=== PATIENT | female | born 1995 | race Caucasian/White ===

== ENCOUNTER 2024-03-30 17:42 | Emergency (ER) | payer SELFPAY ==
[2024-03-30 17:45] VITALS: BP 111/77; PULSE 121; RESP 19; TEMP 36.8; O2SAT 100; BMI 22.4
--- NOTE | 2024-03-30 18:23 | EDS_ITS ---
HPI <FELIPE Henriquez - Last Filed: 03/30/24 20:46> History of Present Illness Chief Complaint: Nausea/Vomiting Narrative Narrative: Patient is a 28-year-old female with history of eczema who presents to the emergency department for 2 hours of nausea, vomiting, dizziness. Patient states that she thought that she was going to vomit, she then became dizzy which she described as lightheadedness, she then had multiple episode of vomitus. Patient recently flew up here from [place] for vacation to see her friends. Patient states that she was around multiple people that were diagnosed with influenza. Patient states that she also has some upper and lower extremity numbness and tingling. Patient states that she is having more abdominal cramping. Denies any blood in her stool or vomit. Patient's last menstrual cycle was greater than 1 month ago. PFSH <FELIPE Henriquez - Last Filed: 03/30/24 20:46> FOR[facility], [facility] Home Medications ?Medication ?Instructions ?Recorded ?Last Taken ?Type dicyclomine 20 mg tablet 20 mg PO TID #10 tabs Unknown Rx ondansetron 4 mg disintegrating 4 mg PO Q8H PRN PRN Na usea #10 tabs 03/30/24 Un known Rx tablet Allergy/AdvReac Type Severity Reaction Status Date / Time tramadol Allergy Mild Hives Verified 03/30/24 22:33 Social History Smoking Status: Never smoker ROS <FELIPE Henriquez - Last Filed: 03/30/24 20:46> ROS ED ROS Narrative Constitutional: Negative for fever, chills, weight loss, weakness Eyes: Negative for vision loss, vision change, double vision ENT: Negative for any sore throat, ear pain, congestion Cardiovascular: Negative for any chest pain, tightness, palpitations Respiratory: Negative for any cough, sputum production, hemoptysis, dyspnea, dyspnea on exertion, orthopnea Gastrointestinal: Negative for any diarrhea, constipation, blood in stool, blood in vomit. Positive for abdominal pain, nausea and vomiting : Negative for any urinary frequency, dysuria, retention, blood in urine Muscle skeletal: Negative for any neck pain, back pain Neurological: Negative for any headache, syncope, dizziness Skin: Negative for any rashes, itching, abrasions, lacerations Psychiatric: Negative for any depression, anxiety, stress, suicidal ideation, homicidal ideation Hematologic: Negative for any excessive bruising, easy bleeding EXAM <FELIPE Henriquez - Last Filed: 03/30/24 20:46> Physical Exam Narrative Exam Narrative: Vital signs reviewed. Patient appears to be in no obvious respiratory distress, vital signs are stable. Patient does look slightly anxious. HEET: Head normocephalic atraumatic, TMs clear bilaterally. Posterior pharynx is clear, dry mucous membranes. Nares clear bilaterally. Neck: Supple with no lymphadenopathy or tenderness. No signs of meningismus. Cardiac: Regular rate and rhythm no murmurs gallops or rubs, equal peripheral pulses bilaterally. Respiratory: Lungs clear to auscultation bilaterally. No chest tenderness. Abdomen: Soft, nontender, nondistended. No abdominal bruit or pulsatile masses. No hepatosplenomegaly Extremities: No peripheral edema, no signs of gross trauma or deformity. Active full range of motion of all extremities. Neuro: Cranial nerves II through XII intact, no focal neurological deficits. Skin: Clean dry and intact with no rash, purpura, petechiae, vesicles or pustules. Backs/flank: No CVA tenderness, no midline spinal tenderness, no deformity. Psych: Normal mood and affect. No SI, HI or acute psychosis. Const Vital Signs: 03/30/24 17:45 03/30/24 20:08 03/30/24 21:24 Temperature 98.3 F 97.9 F Temperature Source Temporal Pulse Rate 121 H 79 82 Respiratory Rate 19 H 17 18 Blood Pressure 111/77 111/71 95/56 L Blood Pressure Mean 88 84 69 Pulse Ox 100 100 97 Oxygen Delivery Method Room Air Room Air Positive well nourished and well developed General Appearance ED: well developed <Dr. Mele Diane, DO - Last Filed: 03/30/24 22:36> Physical Exam Const Vital Signs: 03/30/24 17:45 03/30/24 20:08 03/30/24 21:24 Temperature 98.3 F 97.9 F Temperature Source Temporal Pulse Rate 121 H 79 82 Respiratory Rate 19 H 17 18 Blood Pressure 111/77 111/71 95/56 L Blood Pressure Mean 88 84 69 Pulse Ox 100 100 97 Oxygen Delivery Method Room Air Room Air MDM <FELIPE Henriquez - Last Filed: 03/30/24 20:46> MDM Lab Data Labs: Laboratory Results - last 24 hr 03/30/24 03/30/24 18:00 18:30 WBC 15.5 H RBC 4.12 L Hgb 12.4 Hct 38.4 MCV 93.2 MCH 30.1 MCHC 32.3 RDW Std Deviation 47.8 H RDW Coeff of Ryan 14.0 Plt Count 256 MPV 10.9 Immature Gran % (Auto) 0.500 Neut % (Auto) 78.4 H Lymph % (Auto) 12.2 L [place] % (Auto) 7.7 Eos % (Auto) 0.9 Baso % (Auto) 0.3 Absolute Neuts (auto) 12.2 H Absolute Lymphs (auto) 1.89 Nucleated RBC % 0 Sodium 142 Potassium 3.6 Chloride 108 H Carbon Dioxide 22.0 Anion Gap 12 BUN 11 Creatinine 0.75 Estim Creat Clear Calc 80.21 Est GFR (MDRD) Af Amer 118 Est GFR (MDRD) Non-Af 97 BUN/Creatinine Ratio 14.6 Glucose 99 Calcium 9.9 Total Bilirubin 0.30 AST 22 ALT 31 Alkaline Phosphatase 66 Total Protein 8.4 H Albumin 3.9 Globulin 4.5 H Albumin/Globulin Ratio 0.9 Lipase 29 L Serum , Qual NEGATIVE Urine Color Yellow Urine Clarity Sl Cloudy Urine pH 8.0 Ur Specific [place] 1.015 Urine Protein 100 H Urine Glucose (UA) Normal Urine Ketones 150 A* Urine Occult Blood 10 H Urine Nitrite Negative Urine Bilirubin Negative Urine Urobilinogen Normal Ur Leukocyte Esterase 100 H Urine RBC 0-5 SEEN Urine WBC 5-10 SEEN Ur Squamous Epith Cells 5-10 SEEN Amorphous Sediment 1+ PHOS Urine Bacteria 1+ Urine Mucus 0 SEEN Treatment and Re-Evaluation :: Differential diagnosis includes however is not limited to: Bowel obstruction viral gastroenteritis, influenza, COVID-19, acute cholecystitis, pancreatitis Patient is tachycardic however she is in no obvious respiratory distress. [facility] for nausea and vomiting, generalized abdominal cramping. Patient will receive a COVID-19 influenza RSV swab, as well as basic laboratory values, CBC CMP lipase, 1 L of normal saline, IV Zofran. Urinalysis, test will also be ordered. Patient CBC showed a leukocytosis with a white blood count of 15.5, this could be secondary to nausea and vomiting. Chemistries were unremarkable. Patient is non. Second liter was given. Patient was given IV Toradol. Urinalysis shows some dehydration, negative for any infection. Patient's COVID-19 influenza RSV was negative. Patient to be reevaluated. On reevaluation, the patient was feeling improved. Patient was able to pass a p.o. challenge. Patient be given a prescription for nausea medicine, Bentyl. P atient struck to the advance her diet as tolerated. Instructed return for any worsening symptoms. <Dr. Mele Diane, DO - Last Filed: 03/30/24 22:36> [facility] Narrative Medical decision making narrative: I have personally performed a face to face assessment of the patient and have reviewed the JACQUELINE Note. I performed a substantive portion of the visit including all aspects of the following. My strickland findings include: History: Patient presents with dizziness that began today. Patient describes her dizziness as lightheadedness. Patient states that she started having some paresthesias in her hands and feet. This was over a stocking glove distri bution. Patient admits to a sore throat. Patient also admits to mild headache. Patient denies any fevers or chills. Exam: Vital signs are stable except for tachycardia of 121. Patient is afebrile. Patient is in no acute distress. Oral mucosa is pink and moist. Neck is supple. Trachea is midline. There is no JVD. Heart was regular and tachycardic. Lungs are clear and equal bilaterally. There is good respiratory effort noted. Abdomen is soft. Bowel sounds are normal. There is no tenderness. Cranial nerves II through XII are intact. There are no focal motor or sensory deficits noted. Medical Decision Making: Differential diagnosis includes viral illness, pneumonia, dehydration, gastroenteritis, pancreatitis, , urinary tract infection, and electrolyte abnormality. CBC will be obtained to assess for leukocytosis and anemia. Comprehensive metabolic profile will be obtained to assess for hepatic function, renal function, and electrolyte abnormality. Lipase will be obtained to assess for pancreatitis. Urinalysis will be obtained to assess for urinary tract infection and hematuria. Serum hCG will be obtained to assess for . COVID-19, influenza, and RSV PCR will be obtained to assess for viral illness. Patient was given IV fluids and Zofran. CBC was reviewed. There is a leukocytosis of 15.5. The remainder is within normal limits. Serum hCG was reviewed and was negative. Comprehensive metabolic profile was reviewed and was within normal limits. Lipase was reviewed and was normal at 29. Urinalysis was reviewed. Urine ketones were 150. Leukocyte esterase was 100. There are 5-10 white blood cells and 5-10 epithelial cells. Patient was feeling better on reevaluation. Patient was advised of her findings. COVID-19 PCR was reviewed and was negative. Influenza PCR was reviewed and was negative for influenza A and influenza B. RSV PCR was reviewed and was negative. Patient was able to tolerate p.o. fluids. Patient was instructed to follow-up with her primary care physician in 5 to 7 days. Patient understood and was agreeable with the plan. All questions were answered. Lab Data Labs: Laboratory Results - last 24 hr 03/30/24 03/30/24 18:00 18:30 WBC 15.5 H RBC 4.12 L Hgb 12.4 Hct 38.4 MCV 93.2 MCH 30.1 MCHC 32.3 RDW Std Deviation 47.8 H RDW Coeff of Ryan 14.0 Plt Count 256 MPV 10.9 Immature Gran % (Auto) 0.500 Neut % (Auto) 78.4 H Lymph % (Auto) 12.2 L [place] % (Auto) 7.7 Eos % (Auto) 0.9 Baso % (Auto) 0.3 Absolute Neuts (auto) 12.2 H Absolute Lymphs (auto) 1.89 Nucleated RBC % 0 Sodium 142 Potassium 3.6 Chloride 108 H Carbon Dioxide 22.0 Anion Gap 12 BUN 11 Creatinine 0.75 Estim Creat Clear Calc 80.21 Est GFR (MDRD) Af Amer 118 Est GFR (MDRD) Non-Af 97 BUN/Creatinine Ratio 14.6 Glucose 99 Calcium 9.9 Total Bilirubin 0.30 AST 22 ALT 31 Alkaline Phosphatase 66 Total Protein 8.4 H Albumin 3.9 Globulin 4.5 H Albumin/Globulin Ratio 0.9 Lipase 29 L Serum , Qual NEGATIVE Urine Color Yellow Urine Clarity Sl Cloudy Urine pH 8.0 Ur Specific [place] 1.015 Urine Protein 100 H Urine Glucose (UA) Normal Urine Ketones 150 A* Urine Occult Blood 10 H Urine Nitrite Negative Urine Bilirubin Negative Urine Urobilinogen Normal Ur Leukocyte Esterase 100 H Urine RBC 0-5 SEEN Urine WBC 5-10 SEEN Ur Squamous Epith Cells 5-10 SEEN Amorphous Sediment 1+ PHOS Urine Bacteria 1+ Urine Mucus 0 SEEN Discharge Plan Triage Chief Complaint: Nausea/Vomiting ED Midlevel Provider: Domenic Higgins ED Provider: Mele Diane Dx/Rx/DC Orders Clinical Impression: Nausea & vomiting, Viral illness Instructions: ED Viral Syndrome (Adult), ED Vomiting (Adult) Prescriptions: New ondansetron 4 mg tablet,disintegrating 4 mg PO Q8H PRN PRN (Reason: Nausea) Qty: 10 0RF dicyclomine 20 mg tablet 20 mg PO TID Qty: 10 0RF Primary Care Provider: Care Physician,No Primary Referrals: Care Physician,No Primary [Primary Care Provider] - Activity Restrictions/Additional Instructions: Please advance her diet as tolerated. Use the nausea medicine as needed. Your COVID-19 influenza RSV was negative. This is more of a viral gastroenteritis. Print Language: Greek Disposition Disposition: Home, Self Care Discharge Date/Time: 03/30/24 21:24
[2024-03-30 18:34] LABS: Absolute Lymphocyte Count 1.89 X10^3/uL (0.83-4.51); Absolute Neutrophil Count 12.2 X10^3/uL (2.0-7.7); Basophil# 0.04 X10^3/uL; Basophil% 0.3 % (0-1); Eosinophil# 0.14 X10^3/uL; Eosinophils% 0.9 % (0-5); Hematocrit 38.4 % (37-47); Hemoglobin 12.4 g/dL (12.0-15.0); Lymphocyte # 1.89 X10^3/ul (0.83-4.51); Lymphocyte % 12.2 % (19-41); Mean Corp Hgb Conc 32.3 g/dL (32-36); Mean Corpuscular Hgb 30.1 pg (27.0-32.0); Mean Corpuscular Volume 93.2 fL (81-99); Mean Platelet Vol. 10.9 fl (6.2-12.0); Monocyte% 7.7 % (0-10); NRBC Flagged by Analyzer 0 % (0-5); Neutrophil # 12.17 X10^3/uL (2.7-7.7); Neutrophil % 78.4 % (47-70); Platelet Count 256 K/mm3 (150-450); RBC Distribution Width SD 47.8 fl (35.1-43.9); Red Blood Count 4.12 M/mm3 (4.2-5.4); White Blood Count 15.5 K/mm3 (4.4-11.0)
[2024-03-30] MEDS: Ondansetron 4 MG/2 ML Vial IV (18:41)
[2024-03-30] MEDS: 0.9% Normal Saline (1000mL) 1,000 ML 999 ML IV ×2 (18:41→20:15)
[2024-03-30 18:44] LABS: Mucous, Urine 0 SEEN /hpf (<or=2+)
[2024-03-30 18:46] LABS: Internal QC Validated? YES +Cl - CLEAR BKGD; Pregnancy, Serum, hCG Quali. NEGATIVE Negative
[2024-03-30 18:49] LABS: Glucose, Dipstick Normal (Normal); Leukocyte Esterase-Dipstick 100 /ul (Negative); Nitrite-Dipstick Negative (Negative); Occult Blood-Urine 10 /ul (Negative); Protein-Dipstick 100 mg/dl (Negative); Specific Gravity, Urine 1.015 (1.002-1.030); Urine Bilirubin Dipstick Negative (Negative); Urine Urobilinogen Normal (Normal)
[2024-03-30 18:51] LABS: Color, Urine Yellow (Yellow); Urine Clarity Sl Cloudy (Clear)
[2024-03-30 18:52] LABS: Ketone-Dipstick 150 mg/dl (Negative)
[2024-03-30 18:53] LABS: ALB/GLOB Ratio 0.9 RATIO (0.9-2.4); AST(SGOT) 22 U/L (15-37); Alanine Aminotransfer ALT/SGPT 31 U/L (13-56); Albumin, Serum 3.9 g/dL (3.2-5.0); Alkaline Phosphatase 66 U/L (45-117); Anion Gap 12 (5-15); BUN 11 mg/dL (7-18); BUN/Creat Ratio 14.6 RATIO (10-20); Calcium,Total 9.9 mg/dL (8.5-10.1); Chloride 108 mmol/L (98-107); Creatinine, Serum 0.75 mg/dL (0.55-1.02); EST Glomerular Filtration Rate 97 mL/min (>60); Est Glom Filt Rate - Afr Amer 118 mL/min (>60); Estimated Creatinine Clearance 80.21 ml/min; Globulin 4.5 g/dL (2.2-4.2); Glucose 99 mg/dL (74-106); Lipase 29 U/L (73-393); Potassium 3.6 mmol/L (3.5-5.1); Protein, Total 8.4 g/dL (6.4-8.2); Sodium Level 142 mmol/L (136-145)
[2024-03-30 18:57] LABS: Red Blood Cells-Urine 0-5 SEEN /hpf (0-5); Squamous Epithelial Cells - UA 5-10 SEEN /hpf (5-10); White Blood Cells 5-10 SEEN /hpf (0-5)
[2024-03-30 18:58] LABS: Amorphous Sediment 1+ PHOS; Bacteria 1+ /hpf (None Seen)
[2024-03-30 20:08] VITALS: BP 111/71; PULSE 79; RESP 17; O2SAT 100
[2024-03-30] MEDS: Ketorolac 15 MG/ML Vial IV (20:15)
[2024-03-30 21:24] VITALS: BP 95/56; PULSE 82; RESP 18; TEMP 36.6; O2SAT 97
== END 2024-03-30 21:24 | disposition home or self-care (01) ==
PROVIDERS: Nurse Practitioner; Emergency Provider Emergency Medicine; Visit Provider Emergency Medicine
DX: A08.4 Viral intestinal infection, unspecified (principal)
CPT/HCPCS: 80053; 81001; 83690; 84703; 85025; 87631; 96361; 96374; 96375; 99283; A4216; J2405

== ENCOUNTER 2024-03-30 22:31 | Emergency (ER) | payer SELFPAY ==
[2024-03-30 22:32] VITALS: BP 110/72; PULSE 90; RESP 16; TEMP 36.8; O2SAT 99; BMI 21.9
--- NOTE | 2024-03-30 22:44 | EDS_ITS ---
HPI HPI - GI History of Present Illness Chief Complaint: GI Bleed Detail of Chief Complaint: Vomiting and hematemesis Informant: patient Narrative Narrative: Patient presents to the emergency department complaint of abdominal pain and vomiting and hematemesis. Patient states that she started with nausea and vomiting around 3 or 4 PM today. Also has had several episodes of watery stool. She was seen in the emergency department and diagnosed with a viral illness. She states that she went home and had more emesis x 2 that was bloody and then had another 1 that was brown. She comes in for reevaluation. She complains of mid to right lower quadrant abdominal pain. She has had no prior surgery. She denies fever. 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 PFSH REPLACED BY [facility] Medical History no medical history Home Medications ?Medication ?Instructions ?Recorded ?Last Taken ?Type dicyclomine 20 mg tablet 20 mg PO TID #10 tabs Unknown Rx ondansetron 4 mg disintegrating 4 mg PO Q8H PRN PRN Na usea #10 tabs 03/30/24 Unknown Rx tablet Allergy/AdvReac Type Severity Reaction Status Date / Time tramadol Allergy Mild Hives Verified 03/30/24 22:33 Social History Smoking Status: Never smoker ROS ROS ED Review of Systems ROS Unobtainable: other Constitutional Constitutional ED: Reports lethargy; Denies chills, fever(s), sweats or weight loss Eyes Eyes: Denies blurry vision, change in vision or diplopia ENT ENT ED: Denies rhinorrhea or sore throat Cardiovascular Cardiovascular: Denies chest pain, orthopnea or racing heartbeat Respiratory/Chest Respiratory/Chest: Denies cough, dyspnea, dyspnea on exertion, orthopnea or sputum Gastrointestinal Gastrointestinal: Reports abdominal pain, diarrhea, nausea and vomiting Genitourinary Genitourinary ED: Denies dysuria, hematuria or urinary frequency Musculoskeletal Musculoskeletal: Denies arthralgias, back pain, myalgias or neck pain Integumentary Denies abscess, Abrasions or rash Neurologic Neurologic: Denies headache(s) or weakness Psychiatric Psychiatric: Denies anxiety, depression or suicidal thoughts Endocrine Endocrinology: Denies polydipsia, polyphagia or polyuria Hematologic/Lymphatic Hematologic/Lymphatic: Denies easy bleeding, easy bruising or lymphadenopathy Allergic/Immunologic Allergic/Immunologic ED: Denies mouth swelling, tongue swelling or urticaria EXAM Physical Exam Const Vital Signs: 03/30/24 22:32 03/31/24 00:49 Temperature 98.2 F Temperature Source Oral Pulse Rate 90 Pulse Rate [Lying] 91 Pulse Rate [Sitting (for 1 minute prior to obtaining)] 103 H Pulse Rate [Standing (for 1 minute prior to obtaining)] 102 H Respiratory Rate 16 Blood Pressure 110/72 Blood Pressure [Lying] 100/57 L Blood Pressure [Sitting (for 1 minute prior to obtaining)] 111/64 Blood Pressure [Standing (for 1 minute prior to obtaining)] 99/65 Blood Pressure Mean 84 Blood Pressure Mean [Lying] 71 Blood Pressure Mean [Sitting (for 1 minute prior to obtaining)] 79 Blood Pressure Mean [Standing (for 1 minute prior to obtaining)] 76 Pulse Ox 99 Oxygen Delivery Method Room Air Positive well nourished and well developed General Appearance ED: well developed and NAD HEENT Reports TM's clear and moist mucous membranes normocephalic and atraumatic; Negative for trauma or tenderness Tympanic Membrane ED: Yes TM's clear Eyes PERRL and EOMs intact bilaterally General Eye ED: Negative for pale conjunctiva or scleral icterus Neck no lymphadenopathy, supple and no JVD General: Negative for tenderness Chest Wall inspection of chest normal and palpation of chest normal Chest: Negative for tenderness Resp normal respiratory effort and clear to auscultation bilaterally Effort and Inspection: Negative for respiratory distress or pain with movement Auscultation: Negative for rhonchi, wheezes or diminished lung sounds Cardio regular rate, regular rhythm, S1 normal heart sound, S2 normal heart sound and no murmurs Peripheral Pulses: pulses 2+ throughout GI normal to inspection, nondistended, normoactive bowel sounds, soft to palpation, non-distended and no masses GI Narrative: Tenderness palpation over the right lower quadrant with some guarding. There is no rebound, rigidity, or purulent signs. No mass palpated. Back/Spine no CVA tenderness and no thoracic nor lumbar tenderness Extremity normal to inspection General Extremety ED: Negative for edema General Extremity: Negative for edema Neuro oriented x3, CN's II-XII intact bilaterally, no sensory deficits noted and gait normal Sensorium / Orientation: awake, alert, oriented to person, oriented to place and oriented to time Motor Exam: strength 5/5 throughout and strength abnormal Psych mental status grossly normal Skin no rashes or lesions noted and no wounds MDM MDM MDM Narrative Medical decision making narrative: Patient presents with second visit today with nausea vomiting and diarrhea as well as abdominal pain. Patient states the diarrhea is not frequent but has had several watery stools. She went home and vomited blood. In the differential would be viral illness with Angelika-Diamond tear. She does have right lower quadrant tenderness as well. In the differential also would be appendicitis or other acute intra-abdominal process. She has no history of peptic ulcer disease. IV line will be established. Will repeat blood work and will obtain a CT scan of the abdomen pelvis. Will treat with Zofran and Protonix. CBC with differential obtained showed a white count of 10.9 with hemoglobin 11.5 and platelet count of 210. Chemistries unremarkable. Patient was medicated with Zofran and given a liter normal same fluid bolus. She did CT scan of the abdomen pelvis that showed thick walled loops of ileum as well as ascending and transverse colon possibly due to inflammatory or infectious enterocolitis. Appendix was normal. CT in keeping with an consistent with a viral gastroenteritis. Patient was given Imodium. She had 1 more episode of vomiting after the Zofran and was given Reglan 5 mg IV. Clinically she looks well. Will discharge to home. Advised to push fluids. Advised to return if persistent vomiting, diarrhea, dehydration, worsening hematemesis, or condition should worsen anyway. I suspect that hematemesis was related to a Angelika-Diamond tear. She was written for nausea medicine earlier in the day. Orthostatic vital signs were negative. She did complain of some slight lightheadedness with standing but pressures did not change significantly and heart rate did not go up. Lab Data Attestation: I reviewed the patient's lab results. Labs: Laboratory Results - last 24 hr 03/30/24 22:55 WBC 10.9 RBC 3.75 L Hgb 11.5 L Hct 36.0 L MCV 96.0 MCH 30.7 MCHC 31.9 L RDW Std Deviation 49.9 H RDW Coeff of Ryan 14.1 Plt Count 210 MPV 11.0 Immature Gran % (Auto) 0.300 Neut % (Auto) 75.9 H Lymph % (Auto) 15.7 L [place] % (Auto) 7.7 Eos % (Auto) 0.2 Baso % (Auto) 0.2 Absolute Neuts (auto) 8.3 H Absolute Lymphs (auto) 1.71 Nucleated RBC % 0 Sodium 142 Potassium 3.6 Chloride 113 H Carbon Dioxide 21.0 Anion Gap 7 BUN 9 Creatinine 0.68 Estim Creat Clear Calc 88.47 Est GFR (MDRD) Af Amer 132 Est GFR (MDRD) Non-Af 109 BUN/Creatinine Ratio 13.2 Glucose 106 Calcium 8.3 L Radiography Diagnostic Testing: Clinical Impression(s) from Imaging Studies Abdomen/Pelvis CT 03/30/24 22:44 IMPRESSION: 1. Abnormally thick walled loops of ileum, as well as the ascending and transverse colon, possibly due to an inflammatory or infectious enterocolitis. 2. Small volume of free fluid in the pelvis. [facility] Dis[facility] Plan Triage Chief Complaint: GI Bleed ED Provider: Renato Weldon Dx/Rx/DC Orders Clinical Impression: Angelika-Diamond tear, Viral gastroenteritis Instructions: Angelika-Diamond Tear, ED Gastroenteritis, Viral (Adult) Prescriptions: No Action ondansetron 4 mg tablet,disintegrating 4 mg PO Q8H PRN PRN (Reason: Nausea) Qty: 10 0RF dicyclomine 20 mg tablet 20 mg PO TID Qty: 10 0RF Primary Care Provider: Care Physician,No Primary Referrals: Wilma Alexis [Emergency Nurse] - 3-5 Days Care Physician,No Primary [Primary Care Provider] - Print Language: Luxembourgish Disposition Disposition: Home, Self Care
--- NOTE | 2024-03-30 22:44 | CT_ITS ---
PROCEDURE: ABDOMEN/PELVIS W IV CONT ONLY REASON FOR EXAM: Abdominal pain TECHNIQUE: Abdomen and pelvis CT with intravenous contrast. Multiplanar reconstructions were performed. COMPARISON: None. FINDINGS: Lower chest: Unremarkable. Liver: Unremarkable. Biliary/gallbladder: Unremarkable. Pancreas: Unremarkable. Spleen: Unremarkable. Adrenal glands: Unremarkable. Kidneys: Unremarkable. Gastrointestinal/peritoneum: Multiple loops of ileum are abnormally thick walled. Wall thickening is also present at the ascending and transverse colon.There is fluid throughout the colon consistent with diarrheal illness.The appendix is unremarkable.A small volume of free fluid is present in the pelvis. There is no free air. Vascular: Unremarkable. Lymph nodes: No enlarged lymph nodes by CT size criteria. Pelvic organs: Bilateral ovarian cysts are present measuring 3.2 and 3.1 cm respectively, which are likely physiologic. A few prominent cysts are noted at the cervix measuring up to 1.7 cm, likely a nabothian cysts. Bladder: Unremarkable. Bones: Unremarkable. Soft tissues: Unremarkable. CT/Abdomen/Pelvis W IV Cont ONLY IMPRESSION: 1. Abnormally thick walled loops of ileum, as well as the ascending and transve rse colon, possibly due to an inflammatory or infectious enterocolitis. 2. Small volume of free fluid in the pelvis. Reading Location: [facility]
[2024-03-30] MEDS: Pantoprazole Sodium 40 MG in 0.9% Normal Saline (100mL MB+) 100 ML 330 MG IV (23:04)
[2024-03-30] MEDS: Ondansetron 4 MG/2 ML Vial IV (23:04)
[2024-03-30] MEDS: 0.9% Normal Saline (1000mL) 1,000 ML 999 ML IV (23:04)
[2024-03-30 23:07] LABS: Absolute Lymphocyte Count 1.71 X10^3/uL (0.83-4.51); Absolute Neutrophil Count 8.3 X10^3/uL (2.0-7.7); Basophil# 0.02 X10^3/uL; Basophil% 0.2 % (0-1); Eosinophil# 0.02 X10^3/uL; Eosinophils% 0.2 % (0-5); Hemoglobin 11.5 g/dL (12.0-15.0); Lymphocyte # 1.71 X10^3/ul (0.83-4.51); Lymphocyte % 15.7 % (19-41); Mean Corp Hgb Conc 31.9 g/dL (32-36); Mean Corpuscular Hgb 30.7 pg (27.0-32.0); Monocyte# 0.84 X10^3/uL; Monocyte% 7.7 % (0-10); NRBC Flagged by Analyzer 0 % (0-5); Neutrophil % 75.9 % (47-70); Platelet Count 210 K/mm3 (150-450); RBC Distribution Width CV 14.1 % (11.6-14.6); RBC Distribution Width SD 49.9 fl (35.1-43.9); Red Blood Count 3.75 M/mm3 (4.2-5.4); White Blood Count 10.9 K/mm3 (4.4-11.0)
[2024-03-30 23:37] LABS: Anion Gap 7 (5-15); BUN 9 mg/dL (7-18); BUN/Creat Ratio 13.2 RATIO (10-20); Calcium,Total 8.3 mg/dL (8.5-10.1); Chloride 113 mmol/L (98-107); Creatinine, Serum 0.68 mg/dL (0.55-1.02); EST Glomerular Filtration Rate 109 mL/min (>60); Est Glom Filt Rate - Afr Amer 132 mL/min (>60); Estimated Creatinine Clearance 88.47 ml/min; Glucose 106 mg/dL (74-106); Potassium 3.6 mmol/L (3.5-5.1); Sodium Level 142 mmol/L (136-145)
[2024-03-31] MEDS: Metoclopramide 10 MG/2 ML Vial 5 MG IV (00:35)
[2024-03-31] MEDS: Loperamide 2 MG Capsule 4 MG PO (00:38)
[2024-03-31 00:49] VITALS: BP 100/57; BP 111/64; BP 99/65; PULSE 102; PULSE 103; PULSE 91
[2024-03-31 01:46] VITALS: BP 98/69; PULSE 78; RESP 16; TEMP 37.1; O2SAT 100
== END 2024-03-31 01:47 | disposition home or self-care (01) ==
PROVIDERS: Emergency Provider Emergency Medicine; Visit Provider Emergency Medicine
DX: A08.4 Viral intestinal infection, unspecified (principal)
CPT/HCPCS: 74177; 80048; 85025; 96365; 96375; 99283; Q9967; A4216; J2405